=== PATIENT | male | born 2000 | race Caucasian/White ===

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

== ENCOUNTER 2025-03-22 19:13 | Emergency (ER) | payer BC ==
[~2025-03-22 19:13] MED LIST: Sodium Chloride 0.9% 10 ML Syringe FLUSH PRN
[2025-03-22] MEDS: HYDROmorphone 1 MG/ML Syringe ONE (19:25)
[2025-03-22] MEDS: ceFAZolin 1 GM Vial IVPUSH ONE ×2 (19:28→19:49)
[2025-03-22] MEDS: Diphtheria,Pertussis(Acell),Tetanus Vaccine 0.5 ML Syringe IM ONE (19:34)
[2025-03-22 19:51] LABS: BASOPHILS ABSOLUTE AUTO 0.04 10^3/uL (0.00-0.10); BASOPHILS PERCENT AUTO 0.5 % (0.0-1.0); EOSINOPHILS ABSOLUTE AUTO 0.31 10^3/uL (0.10-0.30); EOSINOPHILS PERCENT AUTO 3.6 % (1.0-3.0); HEMATOCRIT 42.4 % (40.0-52.0); HEMOGLOBIN 15.1 g/dL (13.0-17.0); IMMATURE GRAN ABSOLUTE AUTO 0.03 10^3/uL (0.00-0.04); IMMATURE GRAN PERCENT AUTO 0.3 % (0.0-0.4); LYMPHOCYTES ABSOLUTE AUTO 3.39 10^3/uL (1.00-4.00); LYMPHOCYTES PERCENT AUTO 38.9 % (20.0-40.0); MEAN CORPUSCULAR HEMOGLOBIN 31.5 pg (27.0-31.0); MEAN CORPUSCULAR HGB CONC 35.6 g/dL (32.0-36.0); MEAN CORPUSCULAR VOLUME 88.5 fL (82.0-92.0); MEAN PLATELET VOLUME 9.8 fL (7.4-10.4); MONOCYTES ABSOLUTE AUTO 0.92 10^3/uL (0.10-0.80); MONOCYTES PERCENT AUTO 10.6 % (2.0-8.0); NEUTROPHILS ABSOLUTE AUTO 4.03 10^3/uL (2.50-7.00); NEUTROPHILS PERCENT AUTO 46.1 % (50.0-70.0); PLATELET COUNT,PLT 202 10^3/uL (150-400); RED BLOOD CELL COUNT 4.79 10^6/uL (4.50-6.00); RED CELL DISTRIBUTION WIDTH 11.5 % (11.5-14.5); WHITE BLOOD CELL COUNT,WBC 8.72 10^3/uL (5.00-10.00)
[2025-03-22 20:02] LABS: ALBUMIN 4.01 g/dL (3.40-5.00); BILIRUBIN TOTAL 0.5 mg/dL (0.2-1.0); CALCIUM 9.2 mg/dL (8.7-10.3); CREATININE 1.03 mg/dL (0.51-1.17); EST CRCL DRUG DOSING (CG) 122.43 mL/min; PROTEIN TOTAL,TP 7.4 g/dL (6.4-8.2)
[2025-03-25] MEDS: Sodium Chloride 0.9% 1,000 ML ONE (14:37)
[2025-03-25] MEDS: ceFAZolin 1 GM Vial ONE (14:37)
== END 2025-03-22 20:18 ==
LOC: KA.ED 19:13
DX: S82.832B Other fracture of upper and lower end of left fibula, initial encounter for open fracture type I or II (principal); S82.302B Unspecified fracture of lower end of left tibia, initial encounter for open fracture type I or II; Z23 Encounter for immunization; V86.55XA Driver of 3- or 4- wheeled all-terrain vehicle (ATV) injured in nontraffic accident, initial encounter
CPT/HCPCS: 36415; 70450; 72125; 73600-LT; 80053; 85025; 90471; 90715; 96374; 96375; 99284; 99285-25; J0690; J1171; Q3014